=== PATIENT | female | born 1985 | race Caucasian/White ===

== ENCOUNTER → 2019-08-31 09:21 | Outpatient (CLI) | payer OTHER, SELFPAY ==
--- NOTE | 2019-08-31 09:29 | MRI_ITS ---
STUDY: MRI LUMBAR SPINE WITHOUT CONTRAST REASON FOR EXAM: Female, 33 years old. Lumbar disc herniation, LEFT LEG PAIN, NK TECHNIQUE: Standardized fat and water weighted pulse sequences were obtained in the sagittal and axial planes. COMPARISON: CT abdomen without contrast 07/31/2015. FINDINGS: T11-T12: (Sagittal only). Normal T11 inferior endplate. Minimal anterior wedging of T12 superior endplate is unchanged. Mild disc space height narrowing. Normal disc hydration and morphology. Normal central canal and bilateral intervertebral neural foramina. T12-L1: (Sagittal only). Normal endplates. Normal disc height, hydration and morphology. Normal central canal and bilateral intervertebral neural foramina. Normal lumbar lordosis. There is no substantial scoliosis. Normal conus medullaris that terminates at the upper L1 vertebral body level. L1-2: Normal endplates. Normal disc height, hydration and morphology. Normal bilateral facet joints. Normal central canal and bilateral lateral recesses. Normal bilateral intervertebral neural foramina. L2-3: Normal endplates. Normal disc height, hydration and morphology. Normal central canal and bilateral lateral recesses. Mild asymmetric degenerative facet arthropathy. Normal bilateral intervertebral neural foramina. Benign focal fatty infiltration in the left side of the posterior lower L2 vertebral body. This is confirmed on the sagittal STIR sequence. L3-4: Schmorl''s node in the L3 inferior endplate is unchanged. Prominent spur arising from the posterior inferior corner of L3 vertebral body is unchanged. Smaller spur arising from the posterior superior corner of the film for vertebral body is also unchanged. Suspicious small left-sided caudally extruded and sequestered disc fragment with displacement of the left L4 nerve root sleeve. This is also causing left lateral recess stenosis. Moderately pronounced central canal stenosis with an AP canal diameter of 6.5 mm. Prominent dorsal epidural lipomatosis. Normal right lateral recess. Normal facet joints. Normal bilateral intervertebral neural foramina. L4-5: Mild Modic type II degenerative vertebral marrow fatty changes underneath vertebral endplates. Moderate disc space height narrowing. Small midline ventral extradural defect corresponds to the partially ossified posterior bulging annulus. This is unchanged. Mild central canal stenosis with an AP canal diameter of 8.5 mm set. Normal bilateral lateral recesses. Normal facet joints. Normal bilateral intervertebral neural foramina. L5-S1: Normal endplates. Moderate disc space height narrowing. Prominent spur arising from the posterior inferior corner of L5 vertebral body is unchanged. Underneath this is small posterior midline disc protrusion but no significant ventral extradural defect due to presence of ventral epidural fat. Mild central canal stenosis with an AP canal diameter of 8.5 mm. Normal bilateral lateral recesses. Mild degenerative facet arthropathy are unchanged. Normal bilateral intervertebral neural foramina. Normal visualized sacral ala. Normal visualized paraspinous soft tissue structures. MRI/Spine Lumbar (Routine) IMPRESSION: 1. Moderately pronounced central canal stenosis at L3-L4 disc level with suspicious small left-sided caudally extruded and sequestered disc fragment causing left lateral recess stenosis and displacement of the left L4 nerve root sleeve. The AP canal diameter is 6.5 mm. 2. Mild central canal stenosis at L4-L5 disc level with an AP canal diameter of 8.5 mm and partially ossified posterior bulging annulus causing midline ventral extradural defect. This is unchanged. 3. Mild central canal stenosis at L5-S1 disc level with small posterior midline disc protrusion but no significant ventral extradural defect due to presence of ventral epidural fat. 4. No other additional findings or changes when compared to CT of the abdomen and pelvis without contrast 07/31/2015. Electronically Signed: Anuj Magdaleno MD at 10:36 EDT , Service support ,
== END ==
PROVIDERS: PCP Family Medicine; Referring Provider Orthopaedic Surgery; Visit Provider Orthopaedic Surgery
DX: M51.26 Other intervertebral disc displacement, lumbar region (principal)
CPT/HCPCS: 72148